=== PATIENT | female | born 2000 | race Caucasian/White ===

== ENCOUNTER 2024-01-23 22:09 | Outpatient (CLI) | payer OTHER ==
[2024-01-23] MEDS ORDERED: PRENATAL TABLE1 EAC1 PO (22:26)
[2024-01-23] MEDS ORDERED: ADULT LOW DOSE81 M1 PO (22:26)
[2024-01-23] MEDS ORDERED: FOLIC ACID20 MG PO (22:26)
[2024-01-23] MEDS ORDERED: MEPERIDINE HCL/PF 50 MG/ML VIAL IV PRN (22:30)
[2024-01-23] MEDS ORDERED: PROMETHAZINE HCL 25 MG/ML AMPUL IV PRN (22:30)
[2024-01-23] MEDS ORDERED: RINGERS SOLUTION,LACTATED 1,000 ML IV SCH (22:30)
[2024-01-23 23:14] LABS: URINE APPEARANCE Clear; URINE BILIRRUBIN Negative (NEGATIVE); URINE BLOOD Negative; URINE COLOR Yellow; URINE GLUCOSE Negative (NEGATIVE); URINE KETONE Negative (NEGATIVE); URINE LEUKOCYTE Small; URINE NITRATE Negative; URINE PROTEIN Negative (NEGATIVE); URINE UROBILINOGEN 0.2 E.U./dl
[2024-01-23 23:18] LABS: URINE BACTERIA 2208.4 uL (0.0-1933); URINE EPITHELIAL CELLS 21.4 uL (0.0-38.8); URINE RBC 16.7 uL (0.0-20.8); URINE WBC 8.5 uL (0.0-23.2)
[2024-01-23 23:56] LABS: URINE CAST 0.61 uL (0.0-1.40)
[2024-01-24 00:27] LABS: URINE CRYSTALS MODERATE /HPF
== END 2024-01-24 10:50 | disposition home or self-care (01) ==
LOC: OBS/DEL 22:09
PROVIDERS: Specialist; ATTEND Obstetrics & Gynecology
DX: O26.892 Other specified pregnancy related conditions, second trimester (principal); Z3A.26 26 weeks gestation of pregnancy; R10.2 Pelvic and perineal pain

== ENCOUNTER 2024-04-14 14:00 | Inpatient (IN) | payer OTHER ==
[~2024-04-14] VITALS: Ht 157.5 cm; Wt 95.3 kg
[~2024-04-14 14:00] MED LIST: ADULT LOW DOSE81 M1 PO; FOLIC ACID20 MG PO; PRENATAL TABLE1 EAC1 PO
[2024-04-27] VITALS (11 sets, daily range): BP systolic 89–146; BP diastolic 56–93; O2SAT 99
[2024-04-27] MEDS ORDERED: RINGERS SOLUTION,LACTATED 1,000 ML IV SCH (05:30)
[2024-04-27] MEDS ORDERED: MISOPROSTOL 50 MCG TABLET VAG NR (06:45)
[2024-04-27] MEDS ORDERED: AMPICILLIN SODIUM 2,000 MG VIAL IV ONE (06:45)
[2024-04-27 06:50] LABS: PH,URINE 6.5 (5.0-8.0); URINE APPEARANCE Clear; URINE BILIRRUBIN Negative (NEGATIVE); URINE BLOOD Negative; URINE COLOR Yellow; URINE GLUCOSE Negative (NEGATIVE); URINE KETONE Negative (NEGATIVE); URINE LEUKOCYTE Moderate; URINE NITRATE Negative; URINE PROTEIN Trace (NEGATIVE); URINE UROBILINOGEN 0.2 E.U./dl
[2024-04-27 06:51] LABS: URINE BACTERIA 7101.2 uL (0.0-1933); URINE EPITHELIAL CELLS 101.4 uL (0.0-38.8); URINE RBC 7.1 uL (0.0-20.8); URINE WBC 58.5 uL (0.0-23.2)
[2024-04-27 06:56] LABS: HEMATOCRIT 32.9 % (36.0-45.00); MEAN CELL VOLUME 90.2 fL (80.00-100.00); MEAN CORPUSCULAR HEMOGLOBIN 30.3 pg (27.00-32.0); MEAN CORPUSCULAR HGB CONC 33.6 g/dl (32.0-36.0); PLATELET COUNT 146 K/uL (150-450); RED BLOOD COUNT 3.65 M/uL (4.00-6.00); RED CELL DISTRIBUTION WIDTH 15.7 % (11.5-14.5)
[2024-04-27 07:05] LABS: URINE CAST 0.15 uL (0.0-1.40)
[2024-04-27 07:08] LABS: INR < 0.93; PARTIAL THROMBOPLASTIN TIME 28.9 SECONDS (22.0-34.0); PROTHROMBIN TIME 10.1 SECONDS (9.0-11.5)
[2024-04-27 07:24] LABS: ALBUMIN 2.6 gm/dL (3.4-5.0); BILIRUBIN TOTAL 0.32 mg/dL (0.3-1.2); CALCIUM 8.5 mg/dL (8.5-10.1); CREATININE SERUM 0.56 mg/dL (0.55-1.02); GLOBULINA 3.3 G/DL (2.4-3.5); POTASSIUM 4.08 mEq/L (3.5-5.1); TOTAL PROTEIN 5.9 gm/dL (6.4-8.2)
[2024-04-27] MEDS ORDERED: AMPICILLIN SODIUM 1,000 MG VIAL IV SCH (09:00)
[2024-04-27] MEDS ORDERED: PROMETHAZINE HCL 25 MG/ML AMPUL IV NR (13:30)
[2024-04-27] MEDS ORDERED: OXYTOCIN 500 ML IV NR (13:30)
[2024-04-27] MEDS ORDERED: MEPERIDINE HCL/PF 25 MG/ML VIAL IV ONE (13:30)
[2024-04-27] MEDS ORDERED: IBUprofen 600 MG TABLET PO PRN (17:15)
[2024-04-27] MEDS ORDERED: OXYTOCIN 1,000 ML IV SCH (17:45)
[2024-04-27] MEDS ORDERED: CHLORHEXIDINE GLUCONATE 120 ML BOTTLE TOP SCH (17:45)
[2024-04-27] MEDS ORDERED: CHLORHEXIDINE GLUCONATE 120 ML BOTTLE TOP ONE (18:00)
[2024-04-27] MEDS ORDERED: LIDOCAINE HCL 1% 10ML VIAL PERCUT ONE ×3 (18:00)
[2024-04-27] MEDS ORDERED: ERYTHROMYCIN BASE OPHT 1GM EACH TUBE OP ONE (18:00)
[2024-04-28] VITALS: BP 119/69; BP 119/99
[2024-04-28 06:22] LABS: MEAN CELL VOLUME 92.1 fL (80.00-100.00); MEAN CORPUSCULAR HGB CONC 33.4 g/dl (32.0-36.0); PLATELET COUNT 131 K/uL (150-450); RED BLOOD COUNT 2.35 M/uL (4.00-6.00); RED CELL DISTRIBUTION WIDTH 14.9 % (11.5-14.5)
[2024-04-28 06:45] LABS: HEMATOCRIT 21.6 % (36.0-45.00); MEAN CORPUSCULAR HEMOGLOBIN 30.6 pg (27.00-32.0)
[2024-04-28 06:46] LABS: HEMOGLOBIN 7.2 g/dL (12.0-15.00)
[2024-04-28 08:34] VITALS: BP 120/57
[2024-04-28 13:16] VITALS: BP 116/64
[2024-04-28 17:14] VITALS: BP 118/75
[2024-04-28 19:19] LABS: MEAN CELL VOLUME 92.4 fL (80.00-100.00); MEAN CORPUSCULAR HGB CONC 32.6 g/dl (32.0-36.0); RED BLOOD COUNT 1.99 M/uL (4.00-6.00); RED CELL DISTRIBUTION WIDTH 15.2 % (11.5-14.5)
[2024-04-28 19:20] LABS: MEAN CORPUSCULAR HEMOGLOBIN 30.1 pg (27.00-32.0)
[2024-04-28 19:25] LABS: HEMATOCRIT 18.4 % (36.0-45.00); PLATELET COUNT 126 K/uL (150-450)
[2024-04-29] VITALS: BP 133/84
[2024-04-29 08:13] VITALS: BP 113/72; O2SAT 97
[2024-04-29 12:11] VITALS: BP 112/77; O2SAT 90
[2024-04-29 12:12] VITALS: BP 113/78; O2SAT 97
[2024-04-29 12:13] VITALS: BP 116/78; O2SAT 97
[2024-04-29 16:00] VITALS: BP 121/76
[2024-04-29 16:29] LABS: HEMATOCRIT 24.3 % (36.0-45.00); MEAN CORPUSCULAR HGB CONC 33.9 g/dl (32.0-36.0); PLATELET COUNT 132 K/uL (150-450); RED BLOOD COUNT 2.64 M/uL (4.00-6.00)
[2024-04-29 16:37] LABS: HEMOGLOBIN 8.2 g/dL (12.0-15.00)
== END 2024-04-29 17:12 | disposition home or self-care (01) | DRG 807 ==
LOC: OB/GYN 04-25 14:00 → LDR 04-27 05:21 → OB/GYN 04-27 05:21
PROVIDERS: Obstetrics & Gynecology; ADMIT Obstetrics & Gynecology; ATTEND Obstetrics & Gynecology
PROC: 10E0XZZ Delivery of Products of Conception, External Approach (ICD-10-PCS; principal; 2024-04-27)
PROC: 0KQM0ZZ Repair Perineum Muscle, Open Approach (ICD-10-PCS; 2024-04-27)
PROC: 3E033VJ Introduction of Other Hormone into Peripheral Vein, Percutaneous Approach (ICD-10-PCS; 2024-04-27)
PROC: 3E0P7VZ Introduction of Hormone into Female Reproductive, Via Natural or Artificial Opening (ICD-10-PCS; 2024-04-27)
PROC: 4A1HXCZ Monitoring of Products of Conception, Cardiac Rate, External Approach (ICD-10-PCS; 2024-04-27)
DX: O70.1 Second degree perineal laceration during delivery (principal); Z37.0 Single live birth; O99.824 Streptococcus B carrier state complicating childbirth; Z3A.40 40 weeks gestation of pregnancy; Z20.822 Contact with and (suspected) exposure to COVID-19